=== PATIENT | male | born 1980 | race Caucasian/White ===

== ENCOUNTER 2020-03-07 19:54 | Emergency (ER) | payer OTHER, SELFPAY ==
--- NOTE | ~2020-03-07 | XR_ITS ---
EXAMINATION: XR chest 1V portable EXAM DATE: 03/07/2020 20:25 INDICATION: Right anterior chest pain. History of hypertension. TECHNIQUE: Portable AP frontal chest x-ray was obtained. Comparison is made to prior examination from 03/14/2014. FINDINGS: The lungs are clear. There are no pleural effusions. Cardiac silhouette is prominent but magnified on this AP technique. There is no pneumothorax suspected. The bones and soft tissues are unremarkable. IMPRESSION: No acute cardiopulmonary findings. Reviewed, dictated and finalized at [facility]. GASTROENTEROLOGY
[2020-03-07 20:00] VITALS: BP 145/100; PULSE 87; RESP 15; TEMP 37; O2SAT 99
--- NOTE | 2020-03-07 20:04 | ECG_ITS ---
Measurements Intervals Flasher Rate: 90 P: 64 SD: 165 QRS: 67 QRSD: 96 T: 64 QT: 346 QTc: 425 Interpretive Statements SINUS RHYTHM BORDERLINE ST ABNORMALITY- INFERIOR LEADS BASELINE ARTIFACT- I, II, III BORDERLINE ECG Electronically Signed On 03-07-2020 20:32:51 SPAR FINISHER by Maximilian Fournier D.O.
[2020-03-07 20:17] LABS: Basophils Percent Auto 0.5 % (0.2-1.2); Eosinophils Absolute Auto 0.1 K/mm3 (0-0.3); Eosinophils Percent Auto 1.6 % (0-4.4); Hematocrit 45.7 % (42.0-52.0); Hemoglobin 15.3 g/dL (14.0-18.0); Immature Granulocyte Absolute 0.02 K/mm3 (0.00-0.031); Immature Granulocyte Percent A 0.2 % (0-0.5); Lymphocytes Percent Auto 31.6 % (18.3-44.2); Mean Corpuscular HGB Conc 33.5 g/dl (32-36); Mean Corpuscular Hemoglobin 29.3 pg (26-34); Mean Corpuscular Volume 87.5 fl (80-100); Mean Platelet Volume 9.9 fl (7.4-10.4); Monocytes Absolute Auto 0.6 K/mm3 (0.1-0.6); Monocytes Percent Auto 6.4 % (2.6-8.5); Neutrophils Absolute Auto 5.3 K/mm3 (1.3-6.7); Neutrophils Percent Auto 59.7 % (45.5-73.1); Platelet Count Result 263 k/mm3 (150-375); Red Blood Count 5.22 M/mm3 (4.6-6.20); Red Cell Distribution Width 12.7 % (11.5-14.5); White Blood Count 8.9 K/mm3 (4.5-10.0)
[2020-03-07 20:31] LABS: Alanine Aminotransferase 30 U/L (4-50); Albumin Level 4.5 g/dL (3.5-5.1); Alkaline Phosphatase 44 U/L (38-126); Anion Gap 9 mmol/L (8-16); Aspartate Amino Transferase 28 U/L (17-59); Bilirubin,Total 0.7 mg/dL (0.2-1.3); Blood Urea Nitrogen 16 mg/dL (9-20); Calcium 9.4 mg/dL (8.4-10.2); Carbon Dioxide 28 mmol/L (22-30); Chloride 101 mmol/L (98-107); Estimated CRCL calculation 121 ml/min; Estimated Glomerular Filt Rate > 60; Glucose 132 mg/dL (75-110); Lipase 126 U/L (23-300); Potassium 3.4 mmol/L (3.4-5.0); Sodium 138 mmol/L (137-145)
--- NOTE | 2020-03-07 20:38 | ED.ABDPAIN ---
HPI - Abdominal Pain General Chief Complaint: Abdominal Pain Stated Complaint: chest pain Time Seen by Provider: 03/07/20 20:03 Source: patient Mode of arrival: ambulatory Limitations: no limitations History of Present Illness HPI narrative: In brief this is a 40-year-old male who presents to the emergency department with complaints of lower chest and upper abdominal pain. Patient notes that it is in the right lower chest and upper abdomen. He notes that it is worse when he goes to sit up or moves in certain directions. He noted that the pain came on earlier tonight while making dinner for his kids. He states that this happened around 5:30 PM. Patient notes that he has had similar pain in the past but that it was due to his gallbladder and he does not feel like this this is gallbladder. He denies any nausea or other symptoms at this time. Related Data Home Medications Medication Instructions Recorded Confirmed buspirone mg 03/07/20 citalopram mg 03/07/20 lorazepam 03/07/20 Allergies Allergy/AdvReac Type Severity Reaction Status Date / Time Cephalosporins Allergy Unknown Verified 03/07/20 20:03 doxycycline Allergy Unknown Verified 03/07/20 20:03 Review of Systems Review of Systems: Narrative: CONSTITUTIONAL: Denies fever, chills, or sweats. EYES: Denies visual changes, redness, or discharge. ENT: Denies rhinorrhea, congestion, sore throat, or otalgia. CARDIOVASCULAR: Denies chest pain, palpitations, or edema. RESPIRATORY: Denies cough or dyspnea. GASTROINTESTINAL: Denies nausea, vomiting, or diarrhea. Endorses right upper quadrant abdominal pain GENITOURINARY: Denies dysuria or hematuria. SKIN: Denies rash or itching. MUSCULOSKELETAL: Denies back pain, joint pain, or myalgia. NEUROLOGIC: Denies headache, numbness, dizziness, or weakness. PSYCHIATRIC: Denies anxiety or depression. [facility] Past Medical History Medical History Anxiety Surgical History Surgical History History of nasal surgery Family History Family History Father Family history of diabetes mellitus in first degree relative Social History Social History Smoking end date: 03/03/06 Alcohol intake: current Gender identity (if verbalized by the patient): Male Exam Narrative: Exam Narrative: GENERAL: Well-appearing, well-nourished, and in no acute distress. HEAD: Normocephalic, atraumatic. EYES: PERRLA and EOMI. ENT: Nares clear, no rhinorrhea or epistaxis. Mucous membranes moist. Oropharynx without tonsillar hypertrophy exudate or other lesions. Bilateral TMs pearly zaldivar nonbulging NECK: Supple. No adenopathy or masses. No carotid bruits or JVD CHEST: Clear to auscultation. No respiratory distress. No wheezes rales or rhonchi HEART: Regular rate and rhythm. No murmur heard. Normal peripheral pulses. ABDOMEN: Soft, nondistended, normal active bowel sounds. Tenderness to palpation in the right upper quadrant and right lower chest EXTREMITIES: Normal range of motion. No edema. SKIN: Warm, dry, no rash. NEURO: No focal deficits. Alert and oriented x3. PSYCH: Normal mood and affect. Course Reevaluation(s) Reevaluation #1: Reevaluated patient provided care update. He is feeling better after his medications. Discussed the work-up that ensued today and I do feel his pain is likely musculoskeletal in origin. Patient verbalizes understanding the plan will be discharged home. Date: 03/07/20 Time: 21:55 Vital Signs Vital signs: Vital Signs Temperature 37.0 C 03/07/20 20:00 Pulse Rate 87 03/07/20 20:00 Respiratory Rate 15 03/07/20 20:00 Blood Pressure 145/100 H 03/07/20 20:00 Pulse Oximetry 99 03/07/20 20:00 Temperature 37.0 C 03/07/20 20:00 Pulse Rate 74 03/07/20 21:19 Respiratory Rate 16
[2020-03-07 20:43] LABS: NT Pro B Type Natriuretic Pept 30 PG/ML (5-100); Troponin I < 0.012 ng/mL (0.000-0.034)
[2020-03-07] MEDS: KETOROLAC 15 MG/ML VIAL (*BKC) IV PUSH (21:16)
[2020-03-07] MEDS: HYDROcodone/acetaminophen (*CRX) 5-325 MG TABLET 1 TAB PO (21:16)
[2020-03-07 21:19] VITALS: BP 118/68; PULSE 74; RESP 16; O2SAT 98
[2020-03-07 22:16] VITALS: BP 128/73; PULSE 78; RESP 16; TEMP 36.7; O2SAT 99
== END 2020-03-07 22:24 | disposition home or self-care (01) ==
PROVIDERS: Emergency Provider Emergency Medicine; PCP Internal Medicine
DX: R07.89 Other chest pain (principal); F41.9 Anxiety disorder, unspecified
CPT/HCPCS: 36415; 71045; 80053; 83690; 83880; 84484; 85025; 93005; 96374; 99284; A9270; J1885

== ENCOUNTER 2020-10-16 11:25 | Emergency (ER) | payer OTHER, SELFPAY ==
[2020-10-16] VITALS (18 sets, daily range): BP systolic 117–133; BP diastolic 74–82; PULSE 61–80; RESP 12–24; TEMP 36.2; O2SAT 98–100
--- NOTE | ~2020-10-16 | CT_ITS ---
EXAMINATION: CT abdomen pelvis w con DATE: 10/16/2020 17:52 INDICATION: Lower abdominal pain TECHNIQUE: Computed tomography (CT) of the abdomen and pelvis was performed with 100 cc Omnipaque 350 intravenous contrast. Automated exposure control and iterative reconstruction technique were employe d. Exam dose: 998.10 mGy-cm total exam DLP. COMPARISON: 01/13/2019 right upper quadrant abdominal ultrasound FINDINGS: The lung bases are clear. Normal heart size. No pericardial or pleural effusion. No hepatic space. I mass lesion. The gallbladder appears unremarkable. No gallbladder wall thickening or pericholecystic fluid or fat stranding. Normal splenic size with occasional splenic calcified gra nulomas. No pancreatic mass lesion, calcification or ductal dilatation. Normal morphology of the adrenal glands. No renal mass lesion or urinary tract calculus or hydroureteronephrosis. Normal caliber of the abdominal aorta. No intraperitoneal or retroperitoneal or pelvic mass lesion or adenopathy or ascites. The urinary bladder and prostate gland are unremarkable. Normal appendix. Minimal diverticulosis of the sigmoid colon; no CT evidence of diverticulitis. No erika wel obstruction, bowel wall thickening, pneumatosis or intraperitoneal free air. Small fat-containing umbilical hernia. Included skeletal structures are unremarkable. IMPRESSION: Minimal sigmoid diverticulosis; no CT evidence of diverticulitis Normal appendix Reviewed, dictated and finalized at [facility]. Reviewed, dictated and finalized at location [facility].
[2020-10-16 13:05] LABS: Basophils Percent Auto 0.5 % (0.2-1.2); Eosinophils Absolute Auto 0.1 K/mm3 (0-0.3); Eosinophils Percent Auto 1.1 % (0-4.4); Hematocrit 43.8 % (42.0-52.0); Hemoglobin 14.9 g/dL (14.0-18.0); Immature Granulocyte Absolute 0.01 K/mm3 (0.00-0.031); Immature Granulocyte Percent A 0.2 % (0-0.5); Lymphocytes Absolute Auto 1.84 K/mm3 (0.9-3.2); Lymphocytes Percent Auto 32.6 % (18.3-44.2); Mean Corpuscular Hemoglobin 29.1 pg (26-34); Mean Corpuscular Volume 85.5 fl (80-100); Mean Platelet Volume 9.7 fl (7.4-10.4); Monocytes Absolute Auto 0.5 K/mm3 (0.1-0.6); Monocytes Percent Auto 9.4 % (2.6-8.5); Neutrophils Absolute Auto 3.2 K/mm3 (1.3-6.7); Neutrophils Percent Auto 56.2 % (45.5-73.1); Platelet Count Result 275 k/mm3 (150-375); Red Blood Count 5.12 M/mm3 (4.6-6.20); Red Cell Distribution Width 13.2 % (11.5-14.5); White Blood Count 5.6 K/mm3 (4.5-10.0)
[2020-10-16 13:15] LABS: INR 0.9; Prothrombin Time 12.2 Seconds (11.1-14.7)
[2020-10-16 13:16] LABS: Partial Thromboplastin Time 29.7 SECONDS (22.3-36.8)
[2020-10-16 13:25] LABS: Alanine Aminotransferase 32 U/L (4-50); Albumin Level 4.8 g/dL (3.5-5.1); Alkaline Phosphatase 59 U/L (38-126); Anion Gap 8 mmol/L (8-16); Blood Urea Nitrogen 12 mg/dL (9-20); Calcium 9.2 mg/dL (8.4-10.2); Carbon Dioxide 24 mmol/L (22-30); Chloride 104 mmol/L (98-107); Estimated CRCL calculation 109 ml/min; Estimated Glomerular Filt Rate > 60; Glucose 91 mg/dL (65-110); Potassium 3.8 mmol/L (3.4-5.0); Sodium 136 mmol/L (137-145)
[2020-10-16 14:18] LABS: Aspartate Amino Transferase 32 U/L (17-59)
[2020-10-16] MEDS: SODIUM CHLORIDE 0.9% IV 1,000 ML 999 ML IV CONT (15:42)
[2020-10-16] MEDS: PANTOPRAZOLE SODIUM IV 40 MG VIAL IV PUSH (15:42)
--- NOTE | 2020-10-16 16:40 | ED.GENADULT ---
HPI - General Adult General Chief complaint: Abdominal Pain Stated complaint: black stool Time Seen by Provider: 10/16/20 13:55 Source: patient History of Present Illness HPI narrative: Patient is a 40 y/o male complaining of lower abdominal pain starting 2-3 days ago. He describes his pain as hunger pain and rates it as 2-3/10. There is no pain radiation. There is no alleviating or exacerbating factor. He had some diarrhea, but it resolved. He also has some dark stool. Related Data Home Medications Medication Instructions Recorded Confirmed buspirone mg 03/07/20 citalopram mg 03/07/20 lorazepam 03/07/20 Allergies Allergy/AdvReac Type Severity Reaction Status Date / Time Cephalosporins Allergy Unknown Verified 10/16/20 15:14 doxycycline Allergy Unknown Verified 10/16/20 15:14 Review of Systems Constitutional: Constitutional: Denies chills, Denies fever(s), Denies headache(s) and Denies weakness Eyes: Eyes: Denies blurry vision ENT: Denies headache(s) and Denies neck pain Cardiovascular: Cardiovascular: Denies chest pain and Denies dyspnea Respiratory: Respiratory: Denies cough and Denies dyspnea Gastrointestinal: Gastrointestinal: Reports abdominal pain, Reports diarrhea, Denies nausea and Denies vomiting Genitourinary: Genitourinary: Denies hematuria and Denies dysuria Musculoskeletal: Musculoskeletal: Denies back pain and Denies neck pain Neurologic: Denies headache(s) and Denies weakness [facility] Past Medical History Medical History Anxiety Surgical History Surgical History History of nasal surgery Family History Family History Father Family history of diabetes mellitus in first degree relative Social History Social History Smoking end date: 03/03/06 Alcohol intake: current Gender identity (if verbalized by the patient): Male Exam Const: General: no acute distress and well developed Orientation/consciousness: oriented to person, oriented to place, oriented to time and patient oriented x3 HENMT: Head: normocephalic Ears: external ears normal General nose exam: Normal external nose present Eyes: General: appearance normal, both eyes and all related structures Conjunctivae: conjunctivae normal Neck: Neck: normal visual inspection and full ROM Chest: Chest palpation & inspection: normal inspection of the chest and no tenderness Resp: Effort & Inspection: normal respiratory effort Auscultation: clear to auscultation bilaterally Cardio: Rate: regular rate Rhythm: regular rhythm GI: GI Palp: No abdominal tenderness and Yes Soft to palpation Skin: General skin exam: normal color and turgor normal Neuro: General: oriented to person, oriented to place, oriented to time and patient oriented x3 Cognition (Neuro): normal cognition Extrem: General: normal to inspection, full ROM and no pedal edema Psych: Appearance: grossly normal Mental Status: mental status grossly normal Affect: normal affect Course Consultations Consultation #1: Discussed with Dr. Sharp, who agrees with plan for discharge and will follow up. Date: 10/16/20 Time: 18:55 Vital Signs Vital signs: Vital Signs Temperature 36.2 C L 10/16/20 11:26 Pulse Rate 74 10/16/20 11:26 Respiratory Rate 20 10/16/20 11:26 Blood Pressure 133/82 10/16/20 11:26 Pulse Oximetry 99 10/16/20 11:26 Temperature 36.2 C L 10/16/20 11:26 Pulse Rate 62 10/16/20 19:02 Respiratory Rate 12 10/16/20 15:15 Blood Pressure 117/74 10/16/20 19:02 Pulse Oximetry 100 10/16/20 19:02 Medical Decision Making Vital Signs Vital Signs: Vital Signs Temperature 36.2 C L 10/16/20 11:26 Pulse Rate 74 10/16/20 11:26 Respiratory Rate 20 10/16/20 11:26 Blood Pressure 133/82
[2020-10-16 18:03] LABS: Add Urine Microscopic? YES; Appearance Urine Clear (Clear); Bilirubin Urine Negative (Negative); Blood Urine Negative (Negative); Color Urine Yellow (Yellow); Glucose Urine UA Negative (Negative); Ketones Urine Trace mg/dL (Negative); Leukocyte Esterase Ur Negative LEU/UL (Negative); Mucus Urine Rare /lpf; Nitrate Urine Negative (Negative); Protein Urine Negative (Negative); RBC Urine 0-2 /hpf (0-2); Specific Grav Ur 1.019 (1.001-1.035); Urobilinogen Urine Negative mg/dL (<2.0); WBC Urine 0-3 /hpf
== END 2020-10-16 19:15 | disposition home or self-care (01) ==
PROVIDERS: Emergency Medicine; Emergency Provider Emergency Medicine; PCP Internal Medicine
DX: K57.90 Diverticulosis of intestine, part unspecified, without perforation or abscess without bleeding (principal); F41.9 Anxiety disorder, unspecified
CPT/HCPCS: 36415; 74177; 80053; 81001; 85025; 85610; 85730; 86850; 86900; 86901; 96361; 96374; 99284; C9113; J7030; Q9967

== ENCOUNTER 2021-08-09 10:54 | Emergency (ER) | payer OTHER, SELFPAY ==
[2021-08-09 10:55] VITALS: BP 149/92; PULSE 70; RESP 16; TEMP 36.3; O2SAT 100
[2021-08-09 11:46] VITALS: BP 132/77; PULSE 66; RESP 16; TEMP 36.8; O2SAT 100
--- NOTE | 2021-08-09 11:49 | PC.NURSE ---
pt swelling/rash are beginning to decrease in size compared to when pt first presented. pt reports he is feeling better.
--- NOTE | 2021-08-09 11:51 | ED.ALLEREA ---
HPI - Allergic Reaction General Chief complaint: Allergic Reaction Stated complaint: allergic reaction Time Seen by Provider: 08/09/21 11:49 History of Present Illness HPI narrative: 41-year-old male presents today with complaints of rash noted to left arm and left neck and face. Patient states he was out doing yard work a couple days ago that the rash appeared. Patient originally presented with complaints of shortness of breath that had resolved while he was out in the waiting room. Prior to arrival patient did take Benadryl at home. Patient does have a history of severe allergic reactions to poison [place]. Related Data Home Medications Medication Instructions Recorded Confirmed buspirone 5 mg tablet mg 03/07/20 citalopram 40 mg tablet mg 03/07/20 lorazepam 1 mg tablet 03/07/20 Allergies Allergy/AdvReac Type Severity Reaction Status Date / Time Cephalosporins Allergy Unknown Verified 08/09/21 10:59 doxycycline Allergy Unknown Verified 08/09/21 10:59 Review of Systems Review of Systems: CONSTITUTIONAL: Denies fever, chills, or sweats. EYES: Denies visual changes, redness, or discharge. ENT: Denies rhinorrhea, congestion, sore throat, or otalgia. CARDIOVASCULAR: Denies chest pain, palpitations, or edema. RESPIRATORY: Denies cough or dyspnea. GASTROINTESTINAL: Denies abdominal pain, nausea, vomiting, or diarrhea. GENITOURINARY: Denies dysuria or hematuria. SKIN: Rash to left arm, neck, and face. MUSCULOSKELETAL: Denies back pain, joint pain, or myalgia. NEUROLOGIC: Denies headache, numbness, dizziness, or weakness. PSYCHIATRIC: Denies anxiety or depression. [facility] Past Medical History Medical History Anxiety Surgical History Surgical History History of nasal surgery Family History Family History Father Family history of diabetes mellitus in first degree relative Social History Social History Smoking end date: 03/03/06 Alcohol intake: current Gender identity (if verbalized by the patient): Male Exam Narrative: GENERAL: Well-appearing, well-nourished, and in no acute distress. HEAD: Normocephalic, atraumatic. EYES: PERRLA and EOMI. ENT: Nares clear, no rhinorrhea or epistaxis. Mucous membranes moist. Oropharynx without tonsillar hypertrophy exudate or other lesions. Bilateral TMs pearly zaldivar nonbulging NECK: Supple. No adenopathy or masses. No carotid bruits or JVD CHEST: Clear to auscultation. No respiratory distress. No wheezes rales or rhonchi HEART: Regular rate and rhythm. No murmur heard. Normal peripheral pulses. ABDOMEN: Soft, nontender, nondistended, normal active bowel sounds. EXTREMITIES: Normal range of motion. No edema. SKIN: Pruritic linear rash noted to left neck, left arm, and face. Warm, dry. NEURO: No focal deficits. Alert and oriented x3. PSYCH: Normal mood and affect. Course Vital Signs Vital signs: Vital Signs Temperature 36.3 C L 08/09/21 10:55 Pulse Rate 70 08/09/21 10:55 Respiratory Rate 16 08/09/21 10:55 Blood Pressure 149/92 H 08/09/21 10:55 Pulse Oximetry 100 08/09/21 10:55 Oxygen Delivery Room Air 08/09/21 10:55 Temperature 36.8 C 08/09/21 11:46 Pulse Rate 66 08/09/21 11:46 Respiratory Rate 16 08/09/21 11:46 Blood Pressure 132/77 08/09/21 11:46 Pulse Oximetry 100 08/09/21 11:46 Oxygen Delivery Room Air 08/09/21 11:46 MDM - Allergic Reaction Differential Diagnosis Differential diagnosis: Likely allergic reaction and contact dermatitis Discharge Plan Discharge Clinical Impression: Contact dermatitis Patient Disposition: Home, Self-Care Condition: Stable Instructions: Antibiotic Form, Contact Dermatitis (ED) Additional Instructions: Start oral steroids tomorrow and take the
[2021-08-09] MEDS: methylPREDNISolone SOD SUCC 125 MG VIAL 60 MG IM (12:18)
== END 2021-08-09 12:24 | disposition home or self-care (01) ==
LOC: ANHED 12:04
PROVIDERS: Emergency Provider Nurse Practitioner Family; PCP Internal Medicine
DX: L25.9 Unspecified contact dermatitis, unspecified cause (principal); F41.9 Anxiety disorder, unspecified
CPT/HCPCS: 96372; 99283; J2930

== ENCOUNTER → 2023-02-17 12:37 | Outpatient (CLI) | payer OTHER, SELFPAY ==
--- NOTE | ~2023-02-17 | US_ITS ---
Limited Abdominal Sonogram: Real-time sonographic imaging of the right upper quadrant was performed. Clinical History: Other specified disease or gallbladder Findings: The liver appears mildly echogenic, with no evidence of mass lesion or bile duct dilatatio n. It measures 19.5 cm in length. Main portal vein demonstrates normal direction of flow. The gallbla dder is well distended, and appears normal with no evidence of gallstone or wall thickening. The comm on bile duct measures 5 mm. The visualized pancreas, aorta, and IVC are unremarkable. Impression: Diffuse fatty infiltration of the liver, with associated hepatomegaly. Reviewed, dictated and finalized at location [facility]. MARKETING COORDINATOR Impression: Diffuse fatty infiltration of the liver, with associated hepatomegaly.
== END ==
PROVIDERS: PCP Internal Medicine; Visit Provider Surgery
DX: K76.0 Fatty (change of) liver, not elsewhere classified (principal); K82.8 Other specified diseases of gallbladder
CPT/HCPCS: 76705

== ENCOUNTER 2023-02-25 07:42 | Outpatient (CLI) | payer OTHER, SELFPAY ==
--- NOTE | ~2023-02-25 | NM_ITS ---
EXAMINATION: NM hepatobiliary wo pharm DATE: 02/25/2023 10:46 INDICATION: Right upper quadrant abdominal pain COMPARISON: None. TECHNIQUE: 5 mCi Tc-99m mebrofenin (Choletec) was administered intravenously. Scintigraphic images o f the abdomen were obtained for one hour. At the 1 hour time point, the patient drank 8 oz Ensure, an d imaging was continued for 60 minutes. Gallbladder ejection fraction was calculated by the technolog ist. FINDINGS: There is normal clearance of radiotracer from the blood pool. There is homogeneous tracer u ptake by the liver. Activity progresses to the bowel and gallbladder. The gallbladder ejection fract ion (GBEF) is 31%. Note that with this technique, normal GBEF >= 33%. IMPRESSION: 1. Gallbladder ejection fraction is slightly below normal limits consistent with gallbladder dysfunc tion or chronic cholecystitis in the appropriate clinical setting. Reviewed, dictated and finalized at location [facility]. RPRISE APPLICATION ADMINISTRATOR IMPRESSION: 1. Gallbladder ejection fraction is slightly below normal limits consistent wi th gallbladder dysfunction or chronic cholecystitis in the appropriate clinical setting.
== END 2023-02-25 07:43 | disposition home or self-care (01) ==
PROVIDERS: PCP Internal Medicine; Visit Provider Surgery
DX: R93.2 Abnormal findings on diagnostic imaging of liver and biliary tract (principal)
CPT/HCPCS: 78226; A9537

== ENCOUNTER 2023-07-08 13:56 | Outpatient (CLI) | payer OTHER, SELFPAY ==
[2023-07-08 15:14] LABS: Basophils Percent Auto 0.4 % (0.2-1.2); Eosinophils Absolute Auto 0.1 K/mm3 (0-0.3); Eosinophils Percent Auto 1.4 % (0-4.4); Hematocrit 46.4 % (42.0-52.0); Hemoglobin 15.7 g/dL (14.0-18.0); Immature Granulocyte Absolute 0.04 K/mm3 (0.00-0.031); Immature Granulocyte Percent A 0.4 % (0-0.5); Lymphocytes Absolute Auto 2.13 K/mm3 (0.9-3.2); Lymphocytes Percent Auto 23.6 % (18.3-44.2); Mean Corpuscular HGB Conc 33.8 g/dl (32-36); Mean Corpuscular Hemoglobin 29.5 pg (26-34); Mean Corpuscular Volume 87.2 fl (80-100); Mean Platelet Volume 9.8 fl (7.4-10.4); Monocytes Absolute Auto 0.8 K/mm3 (0.1-0.6); Monocytes Percent Auto 9.3 % (2.6-8.5); Neutrophils Absolute Auto 5.8 K/mm3 (1.3-6.7); Neutrophils Percent Auto 64.9 % (45.5-73.1); Platelet Count Result 323 k/mm3 (150-375); Red Blood Count 5.32 M/mm3 (4.6-6.20)
[2023-07-08 15:31] LABS: Alanine Aminotransferase 92 U/L (6-50); Albumin Level 4.9 g/dL (3.5-5.1); Alkaline Phosphatase 52 U/L (38-126); Anion Gap 11 mmol/L (4-12); Aspartate Amino Transferase 50 U/L (17-59); Bilirubin,Total 0.7 mg/dL (0.2-1.3); Blood Urea Nitrogen 19 mg/dL (9-20); Calcium 9.6 mg/dL (8.4-10.2); Carbon Dioxide 22 mmol/L (22-30); Chloride 106 mmol/L (98-107); Estimated Glomerular Filt Rate > 60; Glucose 103 mg/dL (65-110); Potassium 3.9 mmol/L (3.4-5.0); Sodium 139 mmol/L (137-145)
== END 2023-07-08 13:57 | disposition home or self-care (01) ==
PROVIDERS: PCP Internal Medicine; Visit Provider Internal Medicine
DX: R10.9 Unspecified abdominal pain (principal)
CPT/HCPCS: 36415; 80053; 85025

== ENCOUNTER 2023-07-10 07:57 | Outpatient (RCR) | payer OTHER, SELFPAY ==
[2023-07-10 08:04] VITALS: BMI 33.3
[2023-07-10 09:04] VITALS: BMI 33.3
== END 2023-09-29 09:33 | disposition home or self-care (01) ==
LOC: ANHDMC 07:57
PROVIDERS: PCP Internal Medicine; Visit Provider Internal Medicine
DX: E66.3 Overweight (principal); Z71.3 Dietary counseling and surveillance
CPT/HCPCS: 97802